=== PATIENT | male | born 1970 | race Two or more races ===

== ENCOUNTER 2025-02-02 12:00 | Day surgery (SDC) | payer OTHER, SELFPAY ==
[2025-02-02] VITALS (11 sets, daily range): BP systolic 116–152; BP diastolic 75–101; PULSE 58–76; RESP 10–18; TEMP 36.1–36.6; O2SAT 95–99; BMI 27.9
[2025-02-02] MEDS: DiphenhydrAMINE INJ 50 MG/ML VIAL 25 MG IVP ×2 (14:16→14:50)
[2025-02-02] MEDS: MIDAZOLAM INJ 1 MG/ML VIAL 2 ML (ASD USE ONLY) 2 MG IVP (14:45)
[2025-02-02] MEDS: SODIUM CHLORIDE 0.9% 500 ML 500 ML 20 ML IV (14:45)
[2025-02-02] MEDS: fentaNYL CIT INJ 50 mCg/ML AMP 2ML (ASD USE ONLY) IVP (14:45)
--- NOTE | 2025-02-02 15:35 | SUR.PHASEII ---
1520 Pt more awake and alert. Denies pain or N/V. Abd remains soft. Pt ezekiel PO fluids. 1535 Pt assessment unchanged. No complaints. Amb with steady gait. Able to dress self. Pt and family given dc instructions via flyer maker. Both state understanding. pt meets dc criteria-to home.
== END 2025-02-02 15:35 | disposition home or self-care (01) ==
PROVIDERS: PCP Family Medicine; Referring Provider Specialist; Visit Provider Specialist
PROC: 0DBE8ZX Excision of Large Intestine, Via Natural or Artificial Opening Endoscopic, Diagnostic (ICD-10-PCS; CPT 45380; principal; 2025-02-02 13:00)
DX: Z12.11 Encounter for screening for malignant neoplasm of colon (principal); K64.9 Unspecified hemorrhoids
CPT/HCPCS: 45378; J1200; J2250; J3010; J7040